=== PATIENT | male | born 1955 | race Caucasian/White ===

== ENCOUNTER 2016-10-24 06:52 | Observation (INO) | payer OTHER ==
[~2016-10-24] VITALS: Ht 172.7 cm; Wt 133.0 kg
[~2016-10-24 06:52] MED LIST: ADULT LOW DOSE81 M1 PO; ADVAIR 500/501 DISK IH; ALPRAZOLAM1 MG PO; AMOX TR-K CLV1 EAC4 PO; ASPIRIN325 MG PO; ATORVASTATIN CA20 MG PO; Ecotrin PO; FISH OIL 1,0001 EACH PO; FLONASE16 G1 BOTH NARES; HUMIBID LA,MUC600 MG PO; JANUVIA100 MG PO; K-DUR10 MEQ PO; LASIX40 MG PO; LEVOFLOXACIN750 MG PO; LIPITOR80 MG PO; LITE COAT ASPI325 M1 PO; Lasix PO; Lipitor PO; Lopressor PO; MICARDIS PO; MICARDIS40 MG PO; MULTIVITAMIN1 EAC1 PO; Motrin PO; NITROSTAT,NITR0.4 M1 SL; OMEGA-31000 M1 PO; PLAVIX75 MG PO; PROAIR HFA8.5 GM IH; SERTRALINE HCL25 MG PO; SINGULAIR10 MG PO; TELMISARTAN20 MG PO; THERAGRAN1 TABLET PO; TOBREX5 ML RIGHT EYE; Vicodin,Norco 5/325 PO
[2016-10-24 09:10] LABS: INTER. NORMALIZED RATIO 1.2; PROTHROMBIN TIME 11.8 (9.2-11.2); PTT 27.9 (25-32)
[2016-10-24 09:14] LABS: CHLORIDE 108 mEq/L (99-109); POTASSIUM 4.6 mEq/L (3.7-5.4); SODIUM 141 mEq/L (136-147)
[2016-10-24 09:15] LABS: GLUCOSE 106 mg/dL (70-99)
[2016-10-24 09:17] LABS: ANION GAP 12 MEQ/L (2-14)
[2016-10-24 09:19] LABS: GFR ESTIMATE (CALCULATED) > 59 mL/min/
[2016-10-24 09:20] LABS: UREA NITROGEN (BUN) 19 mg/dL (9-23)
[2016-10-24 09:25] LABS: BASOPHIL COUNT 0.1 K/uL (0-0.1); EOSINOPHIL (%) 2.5 % (0-5); EOSINOPHIL COUNT 0.3 K/uL (0-0.3); HEMATOCRIT 45.9 % (38.0-50.0); IMMATURE GRANULOCYTE (%) 0.4 % (0.0-0.7); INSTRUMENT ABS NEUTROPHIL CT 6.7 K/uL; MCH 28.2 PG (29.0-34.0); MCHC 32.5 G/DL (30.0-36.0); MCV 86.9 FL (86-99); MEAN PLAT.VOLUME 10.3 uM^3 (9.0-12.4); MONOCYTE (%) 7.4 % (3-12); MONOCYTE COUNT 0.7 K/uL (0-0.8); NEUTROPHIL (%) 68.8 % (45-76); NEUTROPHIL COUNT 6.7 K/uL (1.8-6.4); PLATELET COUNT 285 K/uL (156-360); RBC DIS.WIDTH-CV 13.5 % (11.8-14.6); RBC DIS.WIDTH-SD 42.3 % (39-53); RED BLOOD COUNT 5.28 M/uL (4.00-5.50); WHITE BLOOD COUNT 9.8 K/uL (4.1-10.2)
[2016-10-24 09:27] LABS: TROP-I INTERPRETATION NEGATIVE; TROPONIN-I 0.04 ng/mL (0.0-0.30)
[2016-10-24] MEDS ORDERED: ADVAIR 250/501 DISK IH (10:46)
[2016-10-24] MEDS ORDERED: FLONASE16 G1 BOTH NARES (10:46)
[2016-10-24] MEDS ORDERED: CLONAZEPAM0.25 MG PO (10:49)
[2016-10-24] MEDS ORDERED: BUSPAR10 MG PO (10:51)
[2016-10-24] MEDS ORDERED: DESYREL 150 MG150 MG PO (10:53)
[2016-10-24] MEDS ORDERED: SPIRIVA RESPIMAT4 GM IH (10:53)
[2016-10-24 12:35] LABS: TROP-I INTERPRETATION NEGATIVE; TROPONIN-I 0.04 ng/mL (0.0-0.30)
[2016-10-24 12:59] VITALS: BP 134/67
[2016-10-24 16:16] VITALS: BP 129/58
[2016-10-24 17:35] LABS: TROP-I INTERPRETATION NEGATIVE; TROPONIN-I 0.07 ng/mL (0.0-0.30)
[2016-10-24 17:41] LABS: POINT-OF-CARE METER ID UU14162513
[2016-10-24 19:50] VITALS: BP 129/60
[2016-10-24 23:46] VITALS: BP 107/54
[2016-10-25 04:14] VITALS: BP 108/67
[2016-10-25] MEDS ORDERED: ELIQUIS5 MG PO (07:30)
[2016-10-25 07:55] VITALS: BP 106/54
[2016-10-25 08:18] LABS: POINT-OF-CARE METER ID UU13113831
[2016-10-25] MEDS ORDERED: LOPRESSOR25 MG PO (08:22)
[2016-10-25 11:03] LABS: TROP-I INTERPRETATION NEGATIVE; TROPONIN-I 0.03 ng/mL (0.0-0.30)
== END 2016-10-25 12:21 | disposition home or self-care (01) ==
LOC: EME 06:52 → EDOF 10:59 → 5WEST 10:59 → EDOF 10:59 → 5WEST 12:19
PROVIDERS: Emergency Medicine; Hospitalist; Nurse Practitioner Adult Health
PROC: 5A09357 Assistance with Respiratory Ventilation, Less than 24 Consecutive Hours, Continuous Positive Airway Pressure (ICD-10-PCS; principal; 2016-10-24)
DX: R07.2 Precordial pain (principal); I48.0 Paroxysmal atrial fibrillation; J45.909 Unspecified asthma, uncomplicated; G47.33 Obstructive sleep apnea (adult) (pediatric); I25.10 Atherosclerotic heart disease of native coronary artery without angina pectoris; Z95.5 Presence of coronary angioplasty implant and graft; I10 Essential (primary) hypertension; E11.9 Type 2 diabetes mellitus without complications; E78.5 Hyperlipidemia, unspecified; E66.01 Morbid (severe) obesity due to excess calories; I25.5 Ischemic cardiomyopathy
CPT/HCPCS: 71010; 80048; 82948; 84484; 85025; 85610; 85730; 93005; 94640; 94640 76; 94660; 99202; 99281; 99285; G0378; J1650; J1815

== ENCOUNTER 2017-09-26 19:08 | Emergency (ER) | payer OTHER ==
[~2017-09-26] VITALS: Ht 172.7 cm; Wt 138.9 kg
[~2017-09-26 19:08] MED LIST changes: +ADVAIR 250/501 DISK IH; +BUSPAR10 MG PO; +CLONAZEPAM0.25 MG PO; +DESYREL 150 MG150 MG PO; +ELIQUIS5 MG PO; +LOPRESSOR25 MG PO; +SPIRIVA RESPIMAT4 GM IH
[2017-09-26] MEDS ORDERED: PREDNISONE10 M1 PO (23:17)
[2017-09-26] MEDS ORDERED: BENADRYL50 MG PO (23:17)
[2017-09-26 23:32] VITALS: BP 135/68
== END 2017-09-26 23:34 | disposition home or self-care (01) ==
LOC: EME 19:08
DX: T78.3XXA Angioneurotic edema, initial encounter (principal); T78.40XA Allergy, unspecified, initial encounter; Z98.890 Other specified postprocedural states; Z85.828 Personal history of other malignant neoplasm of skin; E11.9 Type 2 diabetes mellitus without complications; Z79.84 Long term (current) use of oral hypoglycemic drugs; E78.5 Hyperlipidemia, unspecified; I10 Essential (primary) hypertension; J45.909 Unspecified asthma, uncomplicated; F32.9 Major depressive disorder, single episode, unspecified; K21.9 Gastro-esophageal reflux disease without esophagitis
CPT/HCPCS: 99281; 99285; J1200; J2930; S0028